=== PATIENT | male | born 1950 | race Caucasian/White ===

== ENCOUNTER 2018-06-14 13:41 | Outpatient (CLI) | payer MEDICAID, MEDICARE ==
--- NOTE | 2018-06-15 07:39 | XRAY Report ---
Reason: BILAT LE EDEMA AND DYSPNEA Procedure Date: 06/14/2018 Accession Number: [id number] / [id number] Procedure: XR - Chest 2 View X-Ray CPT Code: 47735 FULL RESULT: EXAM: CHEST RADIOGRAPHY EXAM DATE: 06/14/2018 02:00 PM. CLINICAL HISTORY: BILAT LE EDEMA AND DYSPNEA. COMPARISON: 03/07/2012. TECHNIQUE: 2 views. FINDINGS: Lungs/Pleura: Pulmonary vascularity is increased with cephalization of vessels. Right basal atelectasis. Small right effusion. Decreased lung volumes. No pneumothorax. Increased AP dimension, flattened hemidiaphragms. Mediastinum: Heart size top normal. Ectatic calcified aorta. Other: None. IMPRESSION: 1. Pulmonary venous congestion. 2. Right basilar atelectasis. Small right effusion RADIA
--- NOTE | 2018-06-15 09:50 | Ultrasound Report ---
Reason: ANASARCA, BILAT LE EDEMA AND DYSPNEA Procedure Date: 06/14/2018 Accession Number: [id number] / [id number] Procedure: US - Abdomen Limited CPT Code: FULL RESULT: EXAM: ABDOMEN ULTRASOUND LIMITED, RUQ EXAM DATE: 06/14/2018 03:05 PM. CLINICAL HISTORY: ANASARCA, BILAT LE EDEMA AND DYSPNEA. COMPARISON: None. TECHNIQUE: Real-time scanning was performed with static images obtained. FINDINGS: Liver: Nodular contour. Normal echotexture.No focal lesion. Liver measures 19.4 cm craniocaudally. Main portal vein flow: Hepatopetal. Gallbladder: Mild nonspecific gallbladder wall thickening.Multiple gallstones measuring up to 19 mm.Sonographic Fraire sign is absent, per technologist's notes. Biliary System: Common bile duct obscured. No intrahepatic ductal dilatation. Pancreas: Visualized portion is unremarkable. Right Kidney: 11.8 cm longitudinally. Normal echotexture.No hydronephrosis.No contour-deforming mass.No calculus. Other: Large-volume ascites. IMPRESSION: 1. Cholelithiasis. Mild nonspecific gallbladder wall thickening. Sonographic Fraire sign absent, per technologist notes. 2. Common bile duct is obscured. 3. Cirrhotic liver morphology. 4. Large volume ascites. RADIA
== END 2018-06-14 13:42 | disposition home or self-care (01) ==
LOC: DI 13:41
PROVIDERS: ATTEND Internal Medicine
DX: K74.60 Unspecified cirrhosis of liver (principal); R18.8 Other ascites; K80.20 Calculus of gallbladder without cholecystitis without obstruction; R09.89 Other specified symptoms and signs involving the circulatory and respiratory systems; J90 Pleural effusion, not elsewhere classified; J98.11 Atelectasis; I51.7 Cardiomegaly; I11.9 Hypertensive heart disease without heart failure; E11.9 Type 2 diabetes mellitus without complications; E78.5 Hyperlipidemia, unspecified
CPT/HCPCS: 71046; 76705; 93306

== ENCOUNTER 2018-06-14 15:17 | Emergency (ER) | payer MEDICARE ==
[2018-06-14] MEDS ORDERED: FUROSEMIDE 40 MG/4 ML VIAL IVP STA (16:39)
--- NOTE | 2018-06-14 16:39 | ED Physician Documentation ---
PD HPI DYSPNEA - Stated complaint Stated Complaint: ASCITES - Chief complaint Chief Complaint: Abd Pain - History obtained from History obtained from: Patient - History of Present Illness Timing - onset: Other (This is a 68-year-old gent with history of diabetes and hypertension presents with about 6 weeks of progressive dyspnea on exertion. At this point he can only walk about 15 steps without having to stop. They noted hypoxemia at home at 88% and about their own oxygen concentrator which does help. He has had massive weight gain totaling about 60 pounds. He is on a low- dose of Lasix, 10 mg a day. He was sent for an outpatient echo, chest x-ray, and abdominal ultrasound today. Chest x-ray and abdominal ultrasound have not yet been read but I do see massive ascites and small pleural effusions. The echocardiogram showed cor pulmonale.) Review of Systems Ten Systems: 10 systems reviewed and negative Constitutional: denies: Fever, Chills Throat: denies: Dental pain / toothache, Sore throat Cardiac: denies: Chest pain / pressure, Palpitations Respiratory: reports: Dyspnea. denies: Cough GI: reports: Abdominal Pain, Abdominal Swelling PD PAST MEDICAL HISTORY - Present Medications Home Medications: Ambulatory Orders Medication Instructions Recorded Confirmed Aspirin 81 mg PO 06/14/18 Lisinopril mg PO 06/14/18 Simvastatin mg PO 06/14/18 amLODIPine [Norvasc] mg PO ONCE 06/14/18 hydroCHLOROthiazide 10 mg PO 06/14/18 [Hydrochlorothiazide] metFORMIN [Glucophage] 500 mg PO ONCE 06/14/18 06/14/18 - Allergies Allergies/Adverse Reactions: Allergies Allergy/AdvReac Type Severity Reaction Status Date / Time No Known Drug Allergies Allergy Verified 06/14/18 15:40 PD ED PE NORMAL - Vitals Vital signs reviewed: Yes - General General: Alert and oriented X 3, No acute distress - HEENT HEENT: PERRL, EOMI - Neck Neck: Supple, no meningeal sign, No bony TTP - Cardiac Cardiac: RRR, No murmur - Respiratory Respiratory: No respiratory distress, Clear bilaterally - Abdomen Abdomen: Non tender, Other (Massive ascites) - Back Back: No CVA TTP, No spinal TTP - Derm Derm: Normal color, Warm and dry - Extremities Extremities: Other (Plus symmetric pedal edema) - Neuro Neuro: Alert and oriented X 3, Normal speech Results - Vitals Vitals: Vital Signs - 24 hr 06/14/18 06/14/18 06/14/18 15:34 17:30 19:20 Temperature 36.2 C L Heart Rate 84 86 73 Respiratory 18 19 17 Rate Blood Pressure 147/92 H 167/100 H 152/101 H O2 Saturation 92 96 93 Oxygen O2 Source Nasal cannula - Labs Labs: Laboratory Tests 06/14/18 06/14/18 06/14/18 16:15 16:15 16:15 WBC 6.1 RBC 5.49 Hgb 16.4 Hct 51.2 MCV 93.3 MCH 29.8 MCHC 31.9 L RDW 16.9 H Plt Count 303 MPV 7.4 Neut # (Auto) 4.9 Lymph # (Auto) 0.4 L Ulster # (Auto) 0.6 Eos # (Auto) 0.1 Baso # (Auto) 0.1 Absolute Nucleated RBC 0.00 Nucleated RBC % 0.1 PT 15.1 H INR 1.3 H Sodium 141 Potassium 3.8 Chloride 107 Carbon Dioxide 21 Anion Gap 13.0 BUN 32 H Creatinine 1.1 Estimated GFR (MDRD) 67 L Glucose 76 Glycated Hemoglobin Estim Average Glucose Calcium 9.0 Total Bilirubin 2.1 H AST 27 ALT 14 Alkaline Phosphatase 118 Troponin I B-Natriuretic Peptide Total Protein 8.0 Albumin 3.5 Globulin 4.5 H Albumin/Globulin Ratio 0.8 L Lipase 33 TSH Urine Color Urine Clarity Urine pH Ur Specific Wilson Urine Protein Urine Glucose (UA) Urine Ketones Urine Occult Blood Urine Nitrite Urine Bilirubin Urine Urobilinogen Ur Leukocyte Esterase Urine RBC Urine WBC Ur Squamous Epith Cells Amorphous Sediment Urine Bacteria Ur Microscopic Review Urine Culture Comments 06/14/18 06/14/18 06/14/18 16:15 16:15 16:15 WBC RBC Hgb Hct MCV MCH MCHC RDW Plt Count MPV Neut # (Auto) Lymph # (Auto) Ulster # (Auto) Eos # (Auto) Baso # (Auto) Absolute Nucleated RBC Nucleated RBC % PT INR Sodium Potassium Chloride Carbon Dioxide Anion Gap BUN Creatinine Estimated GFR (MDRD) Glucose Glycated Hemoglobin 6.4 H Estim Average Glucose 137 H Calcium Total Bilirubin AST ALT Alkaline Phosphatase Troponin I < 0.04 B-Natriuretic Peptide 673 H Total Protein Albumin Globulin Albumin/Globulin Ratio Lipase TSH Urine Color Urine Clarity Urine pH Ur Specific Wilson Urine Protein Urine Glucose (UA) Urine Ketones Urine Occult Blood Urine Nitrite Urine Bilirubin Urine Urobilinogen Ur Leukocyte Esterase Urine RBC Urine WBC Ur Squamous Epith Cells Amorphous Sediment Urine Bacteria Ur Microscopic Review Urine Culture Comments 06/14/18 06/14/18 16:15 17:30 WBC RBC Hgb Hct MCV MCH MCHC RDW Plt Count MPV Neut # (Auto) Lymph # (Auto) Ulster # (Auto) Eos # (Auto) Baso # (Auto) Absolute Nucleated RBC Nucleated RBC % PT INR Sodium Potassium Chloride Carbon Dioxide Anion Gap BUN Creatinine Estimated GFR (MDRD) Glucose Glycated Hemoglobin Estim Average Glucose Calcium Total Bilirubin AST ALT Alkaline Phosphatase Troponin I B-Natriuretic Peptide Total Protein Albumin Globulin Albumin/Globulin Ratio Lipase TSH 4.28 Urine Color YELLOW Urine Clarity HAZY Urine pH 5.0 Ur Specific Wilson >=1.030 H Urine Protein 100 H Urine Glucose (UA) NEGATIVE Urine Ketones TRACE Urine Occult Blood TRACE-INTA Urine Nitrite NEGATIVE Urine Bilirubin SMALL H Urine Urobilinogen 1 (NORMAL) Ur Leukocyte Esterase NEGATIVE Urine RBC 0-5 Urine WBC 0-3 Ur Squamous Epith Cells FEW Squamous Amorphous Sediment Few Urine Bacteria Rare Ur Microscopic Review INDICATED Urine Culture Comments NOT INDICATED PD MEDICAL DECISION MAKING - ED course ED course: At around 5:05 PM he did have an asymptomatic 6 beat run of V. tach. Echo reviewed, he has severe cor pulmonale due to terrible right tricuspid regurgitation which explains his anasarca. Spoke with Dr. Linton here for potential admission but probably needs transport to a facility with both CT surg iftikhar and cardiology for workup. He did receive 80 mg of IV Lasix here with good urine output. He was accepted to [facility] by Dr. Duarte at 8:05 PM and cobras were completed as he needs transfer to a higher level of care with multispecialty input. Departure - Departure Disposition: 02 Transfer Acute Care Hosp Clinical Impression: Cor pulmonale, acute, Anasarca, V tach Tricuspid regurgitation Qualifiers: Cardiac valve disease etiology: nonrheumatic Qualified Code(s): I36.1 - Nonrheumatic tricuspid (valve) insufficiency Condition: Stable
[2018-06-14 16:43] LABS: BASOPHILS # (AUTO) 0.1 10^3/uL (0.0-0.1); BASOPHILS % (AUTO) 1.1 %; EOSINOPHILS # (AUTO) 0.1 10^3/uL (0.0-0.7); EOSINOPHILS % (AUTO) 2.4 %; HGB - HEMOGLOBIN 16.4 g/dL (14.0-18.0); LYMPHOCYTES # (AUTO) 0.4 10^3/uL (1.5-3.5); LYMPHOCYTES % (AUTO) 7.1 %; MEAN CORPUSCULAR HEMOGLOBIN 29.8 pg (27.0-31.0); MEAN CORPUSCULAR HGB CONC 31.9 g/dL (32.0-36.0); MEAN CORPUSCULAR VOLUME 93.3 fL (80.0-94.0); MEAN PLATELET VOLUME 7.4 fL (7.4-11.4); MONOCYTES # (AUTO) 0.6 10^3/uL (0.0-1.0); MONOCYTES % (AUTO) 9.4 %; NEUTROPHILS # (AUTO) 4.9 10^3/uL (1.5-6.6); PLT - PLATELET COUNT 303 10^3/uL (130-450); RED BLOOD COUNT 5.49 10^6/uL (4.70-6.10); RED CELL DISTRIBUTION WIDTH 16.9 % (12.0-15.0); WHITE BLOOD COUNT 6.1 x10^3/uL (4.8-10.8)
[2018-06-14 17:00] LABS: ALBUMIN 3.5 g/dL (3.2-5.5); ALBUMIN/GLOBULIN RATIO 0.8 (1.0-2.2); BILIRUBIN,TOTAL 2.1 mg/dL (0.2-1.0); CREATININE 1.1 mg/dL (0.6-1.2)
[2018-06-14 17:05] LABS: INR 1.3 (0.8-1.2); PT - PROTHROMBIN TIME 15.1 secs (9.9-12.6)
[2018-06-14 17:13] LABS: HB2 TOTAL 17.8 g/dL; HEMOGLOBIN A1C 0.82 g/dL; HEMOGLOBIN A1C % 6.4 % (4.6-6.2)
[2018-06-14 17:46] LABS: GLUCOSE, URINE (UA) NEGATIVE (NEGATIVE); KETONES,URINE (UA) TRACE mg/dL (NEGATIVE); LEUKOCYTE ESTERASE, URINE NEGATIVE (NEGATIVE); NITRITE,URINE NEGATIVE (NEGATIVE); OCCULT BLOOD,URINE TRACE-INTA (NEGATIVE); PROTEIN,URINE 100 mg/dL (NEGATIVE); UROBILINOGEN,URINE 1 (NORMAL) E.U./dL (NORMAL)
[2018-06-14 17:51] LABS: BILIRUBIN,URINE SMALL (NEGATIVE); CLARITY,URINE HAZY (CLEAR); ICTOTEST,URINE POSITIVE
[2018-06-14 17:56] LABS: AMORPHOUS SEDIMENT,UR Few /LPF; BACTERIA,URINE Rare /HPF (None Seen); RBC,URINE 0-5 /HPF (0-5); SQUAMOUS EPITHELIAL CELL,UR FEW Squamous (<= Few)
[2018-06-14 19:34] VITALS: BP 152/101
== END 2018-06-14 21:19 | disposition short-term general hospital (02) ==
LOC: ED 15:17
DX: I27.81 Cor pulmonale (chronic) (principal); I36.1 Nonrheumatic tricuspid (valve) insufficiency; I47.2 Ventricular tachycardia; R18.8 Other ascites; I11.9 Hypertensive heart disease without heart failure; E11.9 Type 2 diabetes mellitus without complications; Z79.84 Long term (current) use of oral hypoglycemic drugs; Z79.82 Long term (current) use of aspirin; K74.60 Unspecified cirrhosis of liver; K80.20 Calculus of gallbladder without cholecystitis without obstruction; J90 Pleural effusion, not elsewhere classified; J98.11 Atelectasis; R09.89 Other specified symptoms and signs involving the circulatory and respiratory systems; E78.5 Hyperlipidemia, unspecified
CPT/HCPCS: 36415; 51798; 71046; 76705; 80053; 81001; 81003; 83036; 83690; 83880; 84443; 84484; 85025; 85610; 87086; 93306; 96374; 99284; 99285

== ENCOUNTER 2018-06-14 21:17 | Outpatient (CLI) | payer MEDICARE | END 2018-06-14 21:18 | disposition short-term general hospital (02) | LOC: EMS 21:17 | PROVIDERS: ATTEND Surgery | DX: I50.810 Right heart failure, unspecified (principal) | CPT/HCPCS: A0425; A0426 ==

== ENCOUNTER 2019-12-06 08:59 | Outpatient (CLI) | payer MEDICARE ==
[2019-12-06 09:18] LABS: CALCIUM 9.1 mg/dL (8.5-10.3); CREATININE 1.2 mg/dL (0.6-1.2)
[2019-12-06 10:04] LABS: HB2 TOTAL 14.8 g/dL; HEMOGLOBIN A1C 0.86 g/dL; HEMOGLOBIN A1C % 7.5 % (4.6-6.2)
== END 2019-12-06 09:00 | disposition home or self-care (01) ==
LOC: LAB 08:59
PROVIDERS: ATTEND Internal Medicine
DX: E11.65 Type 2 diabetes mellitus with hyperglycemia (principal); E53.8 Deficiency of other specified B group vitamins
CPT/HCPCS: 36415; 80048; 82607; 83036

== ENCOUNTER 2020-12-27 12:39 | Outpatient (CLI) | payer MEDICARE ==
[2020-12-27 13:25] LABS: ALBUMIN 4.2 g/dL (3.2-5.5); ALBUMIN/GLOBULIN RATIO 1.1 (1.0-2.2); BILIRUBIN,TOTAL 0.8 mg/dL (0.2-1.0); CALCIUM 9.1 mg/dL (8.5-10.3); CREATININE 1.3 mg/dL (0.6-1.2); POTASSIUM 4.2 mmol/L (3.5-5.0)
[2020-12-27 13:34] LABS: ESTIMATED AVERAGE GLUCOSE 157 mg/dL (70-100); HEMOGLOBIN A1c% 7.1 % (4.27-6.07)
[2020-12-27 14:02] LABS: CREATININE,URINE < 13.0 mg/dL; MICROALBUM/CREATININE RATIO,UR 84.6 ug/mg (<30.0); MICROALBUMIN,URINE 1.1 mg/dL (0-300.0)
== END 2020-12-27 12:40 | disposition home or self-care (01) ==
LOC: LAB 12:39
PROVIDERS: ATTEND Internal Medicine
DX: E11.620 Type 2 diabetes mellitus with diabetic dermatitis (principal)
CPT/HCPCS: 36415; 80053; 82043; 82570; 83036